=== PATIENT | male | born 1970 | race Asian ===

== ENCOUNTER 2023-07-02 10:48 | Day surgery (SDC) | payer OTHER ==
[~2023-07-02] VITALS: Ht 188 cm; Wt 99.0 kg
[~2023-07-02 10:48] MED LIST: ATOR1TAB21 PO; NS 1,000 ML IV ONE; TADA5TAB PO
[2023-07-02] MEDS ORDERED: LIDOCAINE 2% 100MG/5ML SDV (FOR ANES.) As Ordered ONE (12:47)
[2023-07-02] MEDS ORDERED: propofoL 200 MG/20 ML VIAL As Ordered ONE (12:47)
[2023-07-02 13:17] VITALS: TEMP 97.1
[2023-07-02 13:35] VITALS: BP 110/69; O2SAT 97
== END 2023-07-02 13:51 | disposition home or self-care (01) ==
LOC: M OPP 10:48
PROVIDERS: ATTEND Internal Medicine Gastroenterology
DX: Z12.11 Encounter for screening for malignant neoplasm of colon (principal); D12.0 Benign neoplasm of cecum; K64.0 First degree hemorrhoids; Z87.891 Personal history of nicotine dependence; Z79.02 Long term (current) use of antithrombotics/antiplatelets; Z79.899 Other long term (current) drug therapy